=== PATIENT | male | born 1970 | race Caucasian/White ===

== ENCOUNTER 2020-08-10 19:25 | Emergency (ER) | payer BC ==
[~2020-08-10] VITALS: Ht 182.9 cm; Wt 82.2 kg
--- NOTE | 2020-08-10 19:55 | NUR ---
pt states having right sided weakness for about 2 days, states only history is of htn and right eye sx, pt states he has baseline deviation in that eye. piv placed. pt on a
--- NOTE | 2020-08-10 19:56 | NUR ---
pt states symptoms resolved about an hour ago, even pigeon fancier bilateraly, steady ghait, clear speech. piv placed, pt on all monitors, awaiting erp eval
[2020-08-10 20:17] LABS: BASOPHILS % (AUTO) 1 % (0-1); EOSINOPHILS % (AUTO) 1 % (1-7); LYMPHOCYTES % (AUTO) 19 % (22-44); MEAN CORPUSCULAR HEMOGLOBIN 30.9 pg (27.5-34.5); MEAN CORPUSCULAR HGB CONC 34.2 g/dL (33.2-36.2); MEAN PLATELET VOLUME 8.3 fL (7.4-10.4); MONOCYTES % (AUTO) 7 % (2-9); NEUTROPHILS % (AUTO) 72 % (42-75); PLATELET COUNT 329 x10^3/uL (130-400); RED BLOOD COUNT 5.78 x10^6/uL (4.38-5.82); RED CELL DISTRIBUTION WIDTH 14.5 % (9.4-14.8)
[2020-08-10 20:27] LABS: ALANINE AMINOTRANSFERASE 32 U/L (12-78); ALBUMIN 4.1 g/dL (3.4-5.0); ANION GAP 8 mmol/L (5-15); CALCIUM 9.3 mg/dL (8.5-10.1); CHLORIDE 103 mmol/L (98-107); CREATININE 1.18 mg/dL (0.7-1.3)
[2020-08-10 20:29] LABS: ALKALINE PHOSPHATASE 136 U/L (45-117); BILIRUBIN,TOTAL 0.7 mg/dL (0.2-1.0); TOTAL PROTEIN 8.1 g/dL (6.4-8.2)
[2020-08-10 20:39] LABS: AMPHETAMINE SCREEN, URINE Negative (Negative); BARBITURATE SCREEN, URINE Negative (Negative); BENZODIAZEPINE SCREEN, URINE Negative (Negative); CANNABINOID SCREEN, URINE Negative (Negative); COCAINE SCREEN, URINE Negative (Negative); METHADONE SCREEN, URINE Negative (Negative); OPIATE SCREEN, URINE Negative (Negative)
--- NOTE | 2020-08-10 20:50 | NUR ---
pt to ct
[2020-08-10] MEDS ORDERED: OMNIPAQUE 350 MG/ML, 100ML BOTTLE ONE (21:18)
[2020-08-10 22:05] VITALS: BP 167/102
--- NOTE | 2020-08-10 23:06 | NUR ---
THIS RN SPOKE WITH ERP AND ERP STATED THAT HE TALKED WITH PATIENT ABOUT BEING ADMITTED AND PT WAS REFUSING. ERP STATED SPEAKING TO HIM TWICE AND PT STILL STATING HE BELIEVES HE CAN GET IT DONE ON HIS OWN. THIS RN SPOKE WITH PT WELL AND REINFORCED IMPORTANCE OF BEING ADMITTED OR PT COULD HAVE FATAL COMPLICATIONS. PT STATED THAT HE WANTS TO GO HOME AND WILL TAKE CARE OF IT OUTPATIENT. PT STEADY AMBULATING, A/OX4 AND ABLE TO APPROPRIATLY MAKE THIS DECITION. PT GIVEN PAPERS AND PRESCRIPTIONS AND TOLD S/S TO LOOK OUT FOR. PT GETTING PICKED UP BY PARENTS AND GOING HOME
== END 2020-08-10 23:19 | disposition home or self-care (01) ==
LOC: ED 19:45
DX: G45.1 Carotid artery syndrome (hemispheric) (principal); R51.9 Headache, unspecified; R94.31 Abnormal electrocardiogram [ECG] [EKG]; I10 Essential (primary) hypertension; F17.200 Nicotine dependence, unspecified, uncomplicated
CPT/HCPCS: 36415; 70450; 70496; 70498; 80053; 80307; 80320; 85025; 93005; 99285; Q9967; G0480

== ENCOUNTER 2020-08-10 23:54 | Inpatient (IN) | payer BC ==
[~2020-08-10] VITALS: Ht 177.8 cm; Wt 80.4 kg
--- NOTE | 2020-08-11 00:32 | NUR ---
Code Neuro called @ 2355 Called Neurology @ 0025 Neurology called back @ 0027. Doctor hung up. Had to re-page. Doctor called back @ [address] Machado.
[2020-08-11] MEDS ORDERED: OMNIPAQUE 350 MG/ML, 100ML BOTTLE ONE (00:37)
[2020-08-11] MEDS ORDERED: LABETALOL 5MG/ML, 20ML ONE (00:38)
--- NOTE | 2020-08-11 00:44 | NUR ---
PT ARRIVED TO ER AT 2355 AND EVALED BY MD IN HALLWAY AND THEN STRAIGHT TO CT SCAN. PT SCANNED, AND WAS AWAKE, BUT NO VERBAL RESPONSE AND ALSO FULL WEAKNESS AND NO MOVEMENT TO RIGHT ARM, AND WEAKNESS TO RIGHT LEG. PT WITH NOTED FACIAL DROOPING TO RIGHT SIDE. 0030 PT BACK TO TR4 AND PLACED ON CR MONITOR, AND ON O2 NC 2LPM AND MD TO BEDSIDE TO EVAL PT COMPLETELY. NEURO ON THE TELE ROBOT, AND PLACED IN ROOM MD DID NEURO EXAM ON PT. PT WITH DIFFICULTY AND UNABLE TO HOLD RIGHT ARM UP, AND HELD THE RIGHT LEG UP ONLY 1 SECOND. LEFT LEG COULD HOLD FOR 5 SECONDS. 0035 SECOND PIV TO LEFT AC 18G X1 GIVEN. PT BEGAN TALKING WHEN RETURNED TO ROOM. CAN NOT REMEMBER WHAT HAPPENED, AND CAN'T REMEMBER HIS LAST NAME. PT STATES HE DOES NOT KNOW WHERE HE IS AT. MD UPDATED TO EVALUATION. STROKE SCALE DONE BY RN'S AND CHARTED ON CODE NEURO PAPERWORK.
[2020-08-11 00:48] LABS: BASOPHILS % (AUTO) 1 % (0-1); EOSINOPHILS % (AUTO) 1 % (1-7); LYMPHOCYTES % (AUTO) 25 % (22-44); MEAN CORPUSCULAR HEMOGLOBIN 31.1 pg (27.5-34.5); MEAN CORPUSCULAR HGB CONC 34.1 g/dL (33.2-36.2); MEAN PLATELET VOLUME 8.1 fL (7.4-10.4); MONOCYTES % (AUTO) 6 % (2-9); NEUTROPHILS % (AUTO) 67 % (42-75); PLATELET COUNT 280 x10^3/uL (130-400); RED BLOOD COUNT 5.19 x10^6/uL (4.38-5.82); RED CELL DISTRIBUTION WIDTH 14.4 % (9.4-14.8)
--- NOTE | 2020-08-11 00:53 | NUR ---
UPDATED TO PTS CURRENT BP OF 166/98, AND LABETOLOL TO BE HELD AT THIS TIME. MED IS ON STANDBY AT BEDSIDE. WAITING ON CT SCAN IMAGES TO TRANSFER OVER THEY ARE NOT TRANSFERING IN THE COMPUTER SO THEY CAN BE SEEN AND READ AT THIS TIME. MANUFACTURING TECH NOTIFIED AND FUEL EFFICIENT AUTOMOBILE DESIGNER NOTIFIED AT THIS TIME TO HELP SOLVE THE PROBLEM. FUEL EFFICIENT AUTOMOBILE DESIGNER HEADED TO CT DEPARTMENT TO SEE WHAT SHE CAN FIND.
--- NOTE | 2020-08-11 00:54 | NUR ---
PT REMAINS AWAKE, IS SITTING UP IN BED, BUT IS TREMULOUS AND DIFFICULT KEEPING HIS LEGS FROM SHAKING. PT ARRIVED ALSO BY EMS, INCONTINENT AND HAD URINATED HIMSELF.
[2020-08-11] MEDS ORDERED: LABETALOL 5MG/ML, 20ML IVPush ONE (01:00)
[2020-08-11 01:01] LABS: INTERNATIONAL NORMALIZED RATIO 1.1 (0.93-1.1); PROTHROMBIN TIME 11.7 Seconds (9.6-11.5)
[2020-08-11 01:03] LABS: TROPONIN I < 0.015 ng/mL (0.000-0.045)
--- NOTE | 2020-08-11 01:13 | NUR ---
PT DRANK 90ML OF WATER WHILE HOLDING THE CUP WITH HIS LEFT HAND. PT TOLERATED WELL, NO COUGHING AND NO CHOKING NOTED. AWARE. AND CHARTED UNDER SWALLOW TEST ON INTERVENTIONS.
--- NOTE | 2020-08-11 01:22 | NUR ---
NEUROLOGIST JUST CALLED MD, AND SAYS HE WANTS TPA GIVEN. ORDER RECEIVED AT THIS TIME.
[2020-08-11] MEDS ORDERED: SODIUM CHLORIDE 0.9% 1,000ML IVBOLUS ONE (01:30)
[2020-08-11] MEDS ORDERED: ALTEPLASE IV ONE (01:30)
[2020-08-11] MEDS ORDERED: ALTEPLASE 8 MG in SYRINGE 1 EA IVPush ONE (01:30)
--- NOTE | 2020-08-11 01:30 | NUR ---
CHARTING CHANGED TO STROKE PROTOCOL TPA SHEET FOR VITAL SIGNS AND NEURO EXAMS. ATTACHED TO CHART. AFTER INITIATION OF TPA, PT BECAME TALKATIVE, AND SMILING AND CAN NOW SQUEEZE WITH HIS RIGHT HAND WITH WEAKNESS BUT SOME STRENGTH. PT ALSO ABLE TO PUSH WITH HIS RIGHT FOOT NOW, WITH WEAKNESS AND ALSO CAN PULL WITH HIS RIGHT FOOT WITH WEAKNESS. WAS UNABLE TO MOVE OR DO THESE EXERCISES ON ARRIVAL.
--- NOTE | 2020-08-11 01:59 | NUR ---
PT WAS ASKED IF HE TOOK ANY BLOOD THINNERS, AND PT DENIES TAKING ANY BLOOD THINNERS INCLUDING COUMADIN.
--- NOTE | 2020-08-11 02:43 | NUR ---
PT VOIDED IN URINAL APPROXIMATELY 350ML. CLEAR YELLOW URINE, WITH MINIMAL ASSISTANCE AND NO INCONTINENCE.
[2020-08-11] MEDS ORDERED: ONDANSETRON 2MG/ML, 2ML IVPush PRN (03:00)
[2020-08-11] MEDS ORDERED: LORazepam 2 MG/ML, 1ML IVPush ONE (03:00)
[2020-08-11] MEDS ORDERED: THIAMINE 200 MG in SODIUM CHLORIDE 0.9% 50 ML IV ONE (03:00)
[2020-08-11] MEDS ORDERED: ACETAMINOPHEN 325 MG TABLET PO PRN (03:00)
--- NOTE | 2020-08-11 03:03 | NUR ---
PT IS HAVING A CHANGE IN NEURO STATUS AT THIS TIME. RIGHT HAND IS WEAK AGAIN, WITH LITTLE GRASP, AND LEFT HAND IS STRONG. PT NOT RESPONDING VERBALLY THE SAME WAY WHEN HE CAME IN. DR. JIMENEZ TO BEDSIDE TO EVAL PT, AND PT IS UNABLE TO TALK TO HER. PT SEEMS TO BE GETTING FRUSTRATED WITH NOT BEING ABLE TO MOVE HIS RIGHT SIDE AGAIN. PUPILS REMAINS ERRLA AT A 3-4MM. PT HAS BECOME HYPERTENSIVE AT THIS TIME, AND MD IS AWARE. AWAITING NEW ORDERS.
--- NOTE | 2020-08-11 03:33 | NUR ---
Charge nurse note: Pt with post TPA neuro changes, b/p elevated. Pt to have STAT repeat CT now then going to CCU. Amilcar RN accompanied pt to CT on air sampling and monitoring.
[2020-08-11 03:41] LABS: AMPHETAMINE SCREEN, URINE Negative (Negative); BARBITURATE SCREEN, URINE Negative (Negative); BENZODIAZEPINE SCREEN, URINE Negative (Negative); CANNABINOID SCREEN, URINE Negative (Negative); COCAINE SCREEN, URINE Negative (Negative); METHADONE SCREEN, URINE Negative (Negative); OPIATE SCREEN, URINE Negative (Negative)
[2020-08-11] MEDS: LABETALOL 5MG/ML, 20ML IV PRN ×3 (04:12→06:37)
[2020-08-11 04:23] LABS: HCT (SEDRATE) 47.5 % (39.2-51.8)
[2020-08-11] MEDS ORDERED: SODIUM CHLORIDE 0.9% 1,000 ML IV SCH (04:30)
[2020-08-11 04:49] LABS: BASOPHILS % (AUTO) 1 % (0-1); EOSINOPHILS % (AUTO) 0 % (1-7); LYMPHOCYTES % (AUTO) 15 % (22-44); MEAN CORPUSCULAR HEMOGLOBIN 31.4 pg (27.5-34.5); MEAN CORPUSCULAR HGB CONC 35.1 g/dL (33.2-36.2); MEAN PLATELET VOLUME 8.1 fL (7.4-10.4); MONOCYTES % (AUTO) 4 % (2-9); NEUTROPHILS % (AUTO) 80 % (42-75); PLATELET COUNT 290 x10^3/uL (130-400); RED BLOOD COUNT 5.55 x10^6/uL (4.38-5.82); RED CELL DISTRIBUTION WIDTH 14.8 % (9.4-14.8)
[2020-08-11 05:01] VITALS: BP 121/60
[2020-08-11 05:05] LABS: ALBUMIN 3.9 g/dL (3.4-5.0); ANION GAP 10 mmol/L (5-15); CALCIUM 8.8 mg/dL (8.5-10.1); CHLORIDE 101 mmol/L (98-107)
[2020-08-11 05:13] LABS: ALANINE AMINOTRANSFERASE 30 U/L (12-78); ALKALINE PHOSPHATASE 128 U/L (45-117); BILIRUBIN,TOTAL 0.9 mg/dL (0.2-1.0); CREATININE 1.26 mg/dL (0.7-1.3); TOTAL PROTEIN 7.8 g/dL (6.4-8.2)
[2020-08-11 06:43] LABS: MICROSCOPIC NOT IND
[2020-08-11] MEDS ORDERED: POTASSIUM CHLORIDE 20 MEQ TAB.ER.PRT PO ONE (07:00)
[2020-08-11] MEDS: POTASSIUM CHLORIDE 20 MEQ in LACTATED RINGERS 1,000 ML IV SCH ×2 (09:26→23:01)
[2020-08-11] MEDS: hydrALAzine 20 MG/ML, 1ML IV PRN ×2 (09:39→20:21)
[2020-08-11] MEDS: ATORVASTATIN 80 MG TABLET PO SCH (20:34)
[2020-08-12] MEDS: hydrALAzine 20 MG/ML, 1ML IV PRN (04:02)
[2020-08-12] MEDS ORDERED: SODIUM CHLORIDE 0.9% 1,000 ML IV SCH (04:30)
[2020-08-12 04:43] LABS: BASOPHILS % (AUTO) 0 % (0-1); EOSINOPHILS % (AUTO) 1 % (1-7); LYMPHOCYTES % (AUTO) 16 % (22-44); MEAN CORPUSCULAR HGB CONC 34.3 g/dL (33.2-36.2); MONOCYTES % (AUTO) 8 % (2-9); NEUTROPHILS % (AUTO) 75 % (42-75); PLATELET COUNT 292 x10^3/uL (130-400); RED BLOOD COUNT 5.25 x10^6/uL (4.38-5.82); RED CELL DISTRIBUTION WIDTH 14.3 % (9.4-14.8)
[2020-08-12 04:54] LABS: ANION GAP 7 mmol/L (5-15); CALCIUM 8.6 mg/dL (8.5-10.1); CHLORIDE 103 mmol/L (98-107); CHOLESTEROL, TOTAL 145 mg/dL (140-239); CREATININE 1.02 mg/dL (0.7-1.3); TRIGLYCERIDES 120 mg/dL (50-200); VLDL CHOLESTEROL 24 mg/dL (0-25)
[2020-08-12 04:56] LABS: CHOL/HDL RATIO 3.7; HDL CHOL % 27 % (26-37); HDL CHOLESTEROL (DIRECT) 39 mg/dL (40-60); LDL CHOLESTEROL,CALCULATED 82 mg/dL (54-169); LDL/HDL RATIO 2.1 (0.5-3.0)
[2020-08-12] MEDS: ASPIRIN 81 MG TABLET CHEW PO SCH (11:00)
[2020-08-12] MEDS: METOPROLOL TARTRATE 25 MG TAB PO SCH ×3 (11:01→23:53)
[2020-08-12] MEDS: LISINOPRIL 10 MG TABLET PO SCH ×2 (11:01→20:12)
[2020-08-12 11:31] LABS: HCT (SEDRATE) 46.9 % (39.2-51.8)
[2020-08-12 13:45] VITALS: BP 122/80
[2020-08-12] MEDS ORDERED: LISI40TA9 PO (15:05)
[2020-08-12] MEDS ORDERED: CHLO25TA PO (15:05)
[2020-08-12 18:59] VITALS: BP 150/81
[2020-08-12] MEDS: ATORVASTATIN 80 MG TABLET PO SCH (20:12)
[2020-08-13 01:03] VITALS: BP 150/77
[2020-08-13 05:18] LABS: BASOPHILS % (AUTO) 1 % (0-1); EOSINOPHILS % (AUTO) 1 % (1-7); LYMPHOCYTES % (AUTO) 20 % (22-44); MEAN CORPUSCULAR HEMOGLOBIN 31.4 pg (27.5-34.5); MEAN PLATELET VOLUME 8.4 fL (7.4-10.4); MONOCYTES % (AUTO) 9 % (2-9); NEUTROPHILS % (AUTO) 70 % (42-75); PLATELET COUNT 281 x10^3/uL (130-400); RED BLOOD COUNT 5.13 x10^6/uL (4.38-5.82); RED CELL DISTRIBUTION WIDTH 14.4 % (9.4-14.8)
[2020-08-13 05:24] LABS: ANION GAP 8 mmol/L (5-15); CALCIUM 8.8 mg/dL (8.5-10.1); CHLORIDE 102 mmol/L (98-107); CREATININE 1.14 mg/dL (0.7-1.3)
[2020-08-13 07:30] VITALS: BP 129/77
[2020-08-13] MEDS: LISINOPRIL 10 MG TABLET PO SCH ×2 (08:25→20:03)
[2020-08-13] MEDS: ASPIRIN 81 MG TABLET CHEW PO SCH (08:25)
[2020-08-13] MEDS: METOPROLOL TARTRATE 25 MG TAB PO SCH ×2 (08:26→16:54)
[2020-08-13] MEDS ORDERED: POTASSIUM CHLORIDE 20 MEQ in LACTATED RINGERS 1,000 ML IV SCH (09:00)
[2020-08-13 13:30] VITALS: BP 122/79
[2020-08-13 20:02] VITALS: BP 113/70
[2020-08-13] MEDS: ATORVASTATIN 80 MG TABLET PO SCH (20:03)
[2020-08-14 00:11] VITALS: BP 124/77
[2020-08-14] MEDS: METOPROLOL TARTRATE 25 MG TAB PO SCH ×3 (00:14→17:12)
[2020-08-14 05:31] LABS: BASOPHILS % (AUTO) 1 % (0-1); EOSINOPHILS % (AUTO) 2 % (1-7); LYMPHOCYTES % (AUTO) 28 % (22-44); MEAN CORPUSCULAR HEMOGLOBIN 31.3 pg (27.5-34.5); MEAN CORPUSCULAR HGB CONC 34.4 g/dL (33.2-36.2); MEAN PLATELET VOLUME 8.1 fL (7.4-10.4); MONOCYTES % (AUTO) 9 % (2-9); NEUTROPHILS % (AUTO) 59 % (42-75); PLATELET COUNT 292 x10^3/uL (130-400); RED BLOOD COUNT 5.28 x10^6/uL (4.38-5.82); RED CELL DISTRIBUTION WIDTH 14.5 % (9.4-14.8)
[2020-08-14 08:00] VITALS: BP 123/78
[2020-08-14] MEDS: LISINOPRIL 10 MG TABLET PO SCH ×2 (08:20→20:52)
[2020-08-14] MEDS: ASPIRIN 81 MG TABLET CHEW PO SCH (08:20)
[2020-08-14 13:52] VITALS: BP 117/77
[2020-08-14 18:55] VITALS: BP 133/80
[2020-08-14 19:02] LABS: ANA SCREEN NEGATIVE (Negative)
[2020-08-14] MEDS: ATORVASTATIN 80 MG TABLET PO SCH (20:53)
[2020-08-15 00:33] VITALS: BP 127/77
[2020-08-15] MEDS: METOPROLOL TARTRATE 25 MG TAB PO SCH ×3 (00:36→20:15)
[2020-08-15] MEDS: LISINOPRIL 10 MG TABLET PO SCH ×2 (08:24→20:16)
[2020-08-15] MEDS: ASPIRIN 81 MG TABLET CHEW PO SCH (08:24)
[2020-08-15 08:38] VITALS: BP 112/72
[2020-08-15 14:50] VITALS: BP 117/73
[2020-08-15 19:14] VITALS: BP 151/78
[2020-08-15] MEDS: ATORVASTATIN 80 MG TABLET PO SCH (20:15)
[2020-08-16 00:32] VITALS: BP 120/68
[2020-08-16 07:00] VITALS: BP 155/83
[2020-08-16] MEDS: METOPROLOL TARTRATE 25 MG TAB PO SCH (08:41)
[2020-08-16] MEDS: LISINOPRIL 10 MG TABLET PO SCH (08:42)
[2020-08-16] MEDS: ASPIRIN 81 MG TABLET CHEW PO SCH (08:42)
[2020-08-16 13:43] VITALS: BP 118/62
[2020-08-16] MEDS ORDERED: ASPI-963 PO (16:14)
[2020-08-16] MEDS ORDERED: LISI-167 PO (16:14)
[2020-08-16] MEDS ORDERED: ATOR-2 PO (16:14)
== END 2020-08-16 18:11 | disposition home or self-care (01) | DRG 61 ==
LOC: ED 08-11 01:00 → EDIP 08-11 01:57 → CCU 08-11 03:44 → 5SO 08-12 12:53 → 4WST 08-14 17:45
PROVIDERS: ADMIT Family Medicine; ATTEND Hospitalist
DX: I63.512 Cerebral infarction due to unspecified occlusion or stenosis of left middle cerebral artery (principal); G93.41 Metabolic encephalopathy; I16.1 Hypertensive emergency; G81.01 Flaccid hemiplegia affecting right dominant side; I50.30 Unspecified diastolic (congestive) heart failure; K55.1 Chronic vascular disorders of intestine; N17.9 Acute kidney failure, unspecified; F17.210 Nicotine dependence, cigarettes, uncomplicated; D72.829 Elevated white blood cell count, unspecified; I11.0 Hypertensive heart disease with heart failure; I63.522 Cerebral infarction due to unspecified occlusion or stenosis of left anterior cerebral artery; I65.22 Occlusion and stenosis of left carotid artery; J44.9 Chronic obstructive pulmonary disease, unspecified; R13.10 Dysphagia, unspecified; R47.01 Aphasia; Z91.14 Patient's other noncompliance with medication regimen; Z86.73 Personal history of transient ischemic attack (TIA), and cerebral infarction without residual deficits; R47.1 Dysarthria and anarthria; R29.712 NIHSS score 12
CPT/HCPCS: 36415; 70450; 70496; 70498; 70551; 71275; 74018; 74175; 80047; 80048; 80053; 80061; 80307; 80320; 81003; 82140; 83605; 83735; 84145; 84443; 84484; 85025; 85300; 85303; 85306; 85610; 85651; 85730; 86038; 86140; 87081; 93005; 93306; 95819; 99291; G0378; J2997; J3411; J3480; Q9967; 92523-GN; G0480; J0360; J2060; J7030; J7120

== ENCOUNTER 2020-08-23 09:06 | Inpatient (IN) | payer BC ==
[~2020-08-23] VITALS: Ht 182.9 cm; Wt 81.6 kg
[~2020-08-23 09:06] MED LIST: ASPI-963 PO; ASPI81TA45 PO; ATOR-2 PO; CHLO25TA PO; LISI-167 PO; LISI40TA9 PO
[2020-08-23] MEDS ORDERED: CHLORHEXIDINE 15 ML UDC PO ONE (10:00)
[2020-08-23] MEDS ORDERED: LACTATED RINGERS 1,000 ML IV SCH (10:00)
[2020-08-23 10:20] VITALS: BP 130/82
[2020-08-23] MEDS ORDERED: PROPOFOL 50 ML ONE (11:42)
[2020-08-23] MEDS ORDERED: NITROGLYCERIN/D5W PMX 250 ML ONE (11:43)
[2020-08-23] MEDS ORDERED: SUCCINYLCHOLINE 20 MG/ML, 10ML ONE (11:59)
[2020-08-23] MEDS ORDERED: PHENYLEPHRINE 10 MG/ML ONE (11:59)
[2020-08-23] MEDS ORDERED: ONDANSETRON 2MG/ML, 2ML ONE (11:59)
[2020-08-23] MEDS ORDERED: VASOPRESSIN 20 UNIT/ML, 1ML ONE (11:59)
[2020-08-23] MEDS ORDERED: CEFAZOLIN 1,000 MG ONE (11:59)
[2020-08-23] MEDS ORDERED: ROCURONIUM 10MG/ML,5ML ONE (11:59)
[2020-08-23] MEDS ORDERED: DEXAMETHASONE 4 MG/ML, 1ML ONE (11:59)
[2020-08-23] MEDS ORDERED: NEOSTIGMINE 1 MG/ML, 10ML ONE (11:59)
[2020-08-23] MEDS ORDERED: GLYCOPYRROLATE 0.2MG/1ML, 5ML ONE (11:59)
[2020-08-23] MEDS ORDERED: PROPOFOL 10 MG/ML, 20ML ONE (11:59)
[2020-08-23] MEDS ORDERED: HEPARIN 1,000 UNITS/ML, 10ML IV ONE (12:17)
[2020-08-23] MEDS ORDERED: FENTANYL PF 100 MCG/2ML ONE (12:24)
[2020-08-23] MEDS ORDERED: EPHEDRINE 50 MG/ML, 1ML IVPush PRN (13:00)
[2020-08-23] MEDS ORDERED: FENTANYL PF 100 MCG/2ML IV PRN (13:00)
[2020-08-23] MEDS ORDERED: HYDROmorphone 1 MG/ML, 1ML INJ IVPush PRN (13:00)
[2020-08-23] MEDS ORDERED: LABETALOL 5MG/ML, 20ML IV PRN (13:00)
[2020-08-23] MEDS ORDERED: ACETAMINOPHEN 325 MG TABLET PO PRN (13:00)
[2020-08-23] MEDS ORDERED: PROMETHAZINE 25 MG/ML, 1ML IVPush PRN (13:00)
[2020-08-23] MEDS ORDERED: ONDANSETRON 2MG/ML, 2ML IVPush PRN ×2 (13:00→16:30)
[2020-08-23] MEDS ORDERED: METHOCARBAMOL 1,000 MG in DEXTROSE 5% 100 ML IV PRN (13:00)
[2020-08-23] MEDS ORDERED: MEPERIDINE/PF 25MG/0.5ML IVPush PRN (13:00)
[2020-08-23] MEDS ORDERED: OXYcodone 5 MG/5 ML ORAL.SOL UDC PO PRN (13:00)
[2020-08-23] MEDS ORDERED: MIDAZOLAM 1 MG/ML, 2ML IV PRN (13:00)
[2020-08-23] MEDS ORDERED: hydrALAzine 20 MG/ML, 1ML IV PRN ×2 (13:00→16:30)
[2020-08-23] MEDS ORDERED: ACETAMINOPHEN 650 MG/20.3 ML UDC ONE (13:40)
[2020-08-23] MEDS ORDERED: POTASSIUM CHLORIDE 20 MEQ in D5%-LACTATED RINGERS 1,000 ML IV SCH (17:00)
[2020-08-23] MEDS ORDERED: HYDROcodone/APAP 5/325 TABLET PO PRN ×2 (18:00→19:30)
[2020-08-23] MEDS: POTASSIUM CHLORIDE 20 MEQ in LACTATED RINGERS 1,000 ML IV SCH (18:36)
[2020-08-23] MEDS ORDERED: morphine SULFATE 10 MG/ML, 1ML IV PRN (19:30)
[2020-08-23] MEDS ORDERED: NITROPRUSSIDE 50 MG in DEXTROSE 5% 248 ML IV SCH (19:30)
[2020-08-23] MEDS ORDERED: LABETALOL 5MG/ML, 20ML IVPush PRN (19:30)
[2020-08-23] MEDS ORDERED: ONDANSETRON 2MG/ML, 2ML IV PRN (19:30)
[2020-08-23] MEDS ORDERED: PHENYLEPHRINE 50 MG in SODIUM CHLORIDE 0.9% 245 ML IV SCH (19:30)
[2020-08-23] MEDS: CEFAZOLIN PMX 1GM/50ML 50 ML IVPB SCH (19:47)
[2020-08-23] MEDS: SODIUM CHLORIDE FLUSH 10ML SYR IVF SCH (19:48)
[2020-08-23 20:22] VITALS: BP 109/59
[2020-08-23] MEDS ORDERED: ATORVASTATIN 80 MG TABLET PO SCH (21:00)
[2020-08-23] MEDS ORDERED: LISINOPRIL 10 MG TABLET PO SCH (21:00)
[2020-08-24 00:04] VITALS: BP 99/61
[2020-08-24] MEDS: POTASSIUM CHLORIDE 20 MEQ in LACTATED RINGERS 1,000 ML IV SCH (04:06)
[2020-08-24] MEDS: CEFAZOLIN PMX 1GM/50ML 50 ML IVPB SCH (04:11)
[2020-08-24 04:23] VITALS: BP 124/71
[2020-08-24 05:53] LABS: BASOPHILS % (AUTO) 1 % (0-1); EOSINOPHILS % (AUTO) 1 % (1-7); LYMPHOCYTES % (AUTO) 20 % (22-44); MEAN CORPUSCULAR HEMOGLOBIN 31.1 pg (27.5-34.5); MEAN CORPUSCULAR HGB CONC 34.4 g/dL (33.2-36.2); MEAN PLATELET VOLUME 8.3 fL (7.4-10.4); MONOCYTES % (AUTO) 7 % (2-9); NEUTROPHILS % (AUTO) 71 % (42-75); PLATELET COUNT 294 x10^3/uL (130-400); RED BLOOD COUNT 4.54 x10^6/uL (4.38-5.82); RED CELL DISTRIBUTION WIDTH 13.9 % (9.4-14.8)
[2020-08-24 06:00] LABS: INTERNATIONAL NORMALIZED RATIO 1.06 (0.93-1.1); PROTHROMBIN TIME 11.3 Seconds (9.6-11.5)
[2020-08-24] MEDS ORDERED: ENOXAPARIN 40 MG/0.4 ML SQ SCH (06:00)
[2020-08-24] MEDS ORDERED: ASPIRIN 81 MG TABLET EC PO SCH (06:00)
[2020-08-24 06:05] LABS: ALBUMIN 3.1 g/dL (3.4-5.0); ANION GAP 4 mmol/L (5-15); CALCIUM 8.7 mg/dL (8.5-10.1); CHLORIDE 107 mmol/L (98-107)
[2020-08-24 06:08] LABS: ALANINE AMINOTRANSFERASE 37 U/L (12-78); ALKALINE PHOSPHATASE 106 U/L (45-117); BILIRUBIN,TOTAL 0.5 mg/dL (0.2-1.0); TOTAL PROTEIN 6.1 g/dL (6.4-8.2)
[2020-08-24 07:05] VITALS: BP 132/79
[2020-08-24] MEDS: SODIUM CHLORIDE FLUSH 10ML SYR IVF SCH (09:00)
[2020-08-24] MEDS ORDERED: CHLORTHALIDONE 25 MG TABLET PO SCH (09:00)
[2020-08-24] MEDS ORDERED: LISINOPRIL 10 MG TABLET PO SCH (09:00)
== END 2020-08-24 10:50 | disposition home or self-care (01) | DRG 37 ==
LOC: ORIP 09:06 → 3N 16:01 → 4NE 16:07 → DCLOUNGE 08-24 10:36
PROVIDERS: ADMIT Surgery; ATTEND Surgery
PROC: 03CN0ZZ Extirpation of Matter from Left External Carotid Artery, Open Approach (ICD-10-PCS; 2020-08-23)
PROC: 03CL0ZZ Extirpation of Matter from Left Internal Carotid Artery, Open Approach (ICD-10-PCS; 2020-08-23)
PROC: 03CJ0ZZ Extirpation of Matter from Left Common Carotid Artery, Open Approach (ICD-10-PCS; principal; 2020-08-23 11:30)
DX: I63.232 Cerebral infarction due to unspecified occlusion or stenosis of left carotid arteries (principal); I63.519 Cerebral infarction due to unspecified occlusion or stenosis of unspecified middle cerebral artery; I50.32 Chronic diastolic (congestive) heart failure; K55.1 Chronic vascular disorders of intestine; I69.351 Hemiplegia and hemiparesis following cerebral infarction affecting right dominant side; J44.9 Chronic obstructive pulmonary disease, unspecified; I11.0 Hypertensive heart disease with heart failure; Z79.899 Other long term (current) drug therapy
CPT/HCPCS: 36415; 80053; 85025; 85610; 86850; 86900; 88300; G0378; J0690; J1100; J1644; J1650; J2405; J2704; J2710; J3010; J3480; U0005; J0330; J2370; J7120; U0003